=== PATIENT | female | born 1945 | race Caucasian/White ===

== ENCOUNTER 2017-05-29 15:22 | Emergency (ER) | payer OTHER ==
--- NOTE | ~2017-05-29 | CR63 ---
[facility] A Service [facility] RADIOLOGY TEXT RESULTS PATIENT: BRIANNA JERONIMO LOCATION: SED : 47 UNIT #: [id number] AGE: [address]: Pradeep River SEX: F ORDER DR: [id number] [address] [address] [id number] E MR#: [id number] Acc #: [id number] NAME: BRIANNA JERONIMO. : 1945 SEX: F STUDY DATE/TIME: 05/29/2017 16:06 UNIT: SED ROOM: STUDY DESCRIPTION: CR Chest 2 View Attending Physician: Pradeep River P.A.-C. Ordering Physician: Pradeep River P.A.-C. Primary Care Physician: Fernanda Velarde M.D. MEDICAL IMAGING REPORT This report is preliminary unless electronic signature is present. EXAM PA and lateral chest DATE 05/29/2017 HISTORY Top of left shoulder pain which began 1 week ago. No known injury. COMPARISON AP portable chest radiograph 02/03/2014. FINDINGS There is stable cardiac enlargement and thoracic aortic tortuosity. No acute airspace disease is seen. No pleural effusion or pneumothorax is identified. Valve replacement changes are present. Left chest wall pacemaker and leads appear stable. No visible pneumothorax. IMPRESSION 1. Stable cardiac enlargement and thoracic aortic tortuosity. No acute chest findings. Dictated by... Suzanne Hammond M.D. THIS IS AN ELECTRONICALLY VERIFIED REPORT Suzanne Hammond M.D. at 05/30/2017 8:[address] [facility]/tarsha TD: 05/29/2017 22:03 JOB #: [id number] [facility] A Service [facility] RADIOLOGY TEXT RESULTS PATIENT: BRIANNA JERONIMO LOCATION: SED : 47 UNIT #: [id number] AGE: [address]: Pradeep River PAC SEX: F ORDER DR: MEDICAL IMAGING REPORT Page 1 of 1
--- NOTE | ~2017-05-29 | EKG ---
PATIENT: BRIANNA JERONIMO UNIT #: [id number] Ventricular Rate: 73 BPM Atrial Rate: 73 BPM P-R Interval: 252 ms QRS Duration: 176 ms Q-T Interval: 456 ms QTC Calculation(Bezet): 502 ms P [place]: 12 degrees Calculated R [place]: -76 degrees Calculated T [place]: 93 degrees Diagnosis Line: Sinus rhythm Electronic ventricular pacemaker Diagnosis Line: When compared with ECG of 16-FEB-2011 07:10, Diagnosis Line: HI interval has increased Diagnosis Line: Questionable change in QRS duration Diagnosis Line: Borderline criteria for Lateral infarct are now Diagnosis Line: Present Diagnosis Line: Confirmed by GAVIOTA GARZA MD ([id number]) on 06/01/2017 Diagnosis Line: 4:36:19 PM INTERPRETING MD: KAYLA QUINTERO
--- NOTE | ~2017-05-29 | CR229 ---
[facility] A Service of [facility] RADIOLOGY TEXT RESULTS PATIENT: BRIANNA JERONIMO LOCATION: SED : 47 UNIT #: [id number] AGE: [address]: Pradeep River SEX: F ORDER DR: [id number] [address] [address] [id number] E MR#: [id number] Acc #: [id number] NAME: BRIANNA JERONIMO. : 1945 SEX: F STUDY DATE/TIME: 05/29/2017 16:07 UNIT: SED ROOM: STUDY DESCRIPTION: CR Shoulder Min 2 View Lt Attending Physician: Pradeep River P.A.-C. Ordering Physician: Pradeep River P.A.-C. Primary Care Physician: Fernanda Velarde M.D. MEDICAL IMAGING REPORT This report is preliminary unless electronic signature is present. EXAM 3 views left shoulder 05/29/2017 HISTORY Cough. Left shoulder pain which began 1 week ago. No known injury. COMPARISON None. FINDINGS No fracture. No dislocation. Glenohumeral joint space appears preserved. There is mild degenerative spurring of the AC joint. There is mild spurring of the greater tuberosity of the humerus. Imaging of the left lung appears clear. There is mild cardiac enlargement with signs of median sternotomy and valve replacement. Left chest wall pacemaker device is in place. Imaged left ribs appear intact. IMPRESSION 1. Mild degenerative spurring of the greater tuberosity of the humerus and mild AC joint spurring. 2. No acute abnormality left shoulder. Dictated by... Suzanne Hammond M.D. THIS IS AN ELECTRONICALLY VERIFIED REPORT Suzanne Hammond M.D. at 05/30/2017 8:43 AM NATHALIE/thomas TD: 05/29/2017 22:03 JOB #: [id number] [facility] A Service [facility] RADIOLOGY TEXT RESULTS PATIENT: BRIANNA JERONIMO LOCATION: [facility] [place] : 47 UNIT #: [id number] AGE: [address]: Pradeep River PAC SEX: F ORDER DR: MEDICAL IMAGING REPORT Page 1 of 1
[~2017-05-29 15:22] MED LIST: CALCIUM1 TAB.CHEW PO; LASIX20 MG PO; MULTIVITAMIN1 UDCAP PO; NEXIUM PO; VITAMIN B-12500 MCG PO
[2017-05-29] MEDS ORDERED: B/P MED (15:39)
[2017-05-29] MEDS ORDERED: CALCIUM500 M1 (15:39)
== END 2017-05-29 17:00 | disposition home or self-care (01) ==
LOC: SED 15:22
DX: M25.512 Pain in left shoulder (principal); I25.10 Atherosclerotic heart disease of native coronary artery without angina pectoris; K21.9 Gastro-esophageal reflux disease without esophagitis; Z98.51 Tubal ligation status; Z90.49 Acquired absence of other specified parts of digestive tract
CPT/HCPCS: 71020; 73030; 93005; 99284